=== PATIENT | male | born 1940 | race Caucasian/White ===

== ENCOUNTER → 2016-09-06 | Day surgery (SDC) | payer OTHER ==
[2016-08-31 09:37] VITALS: BMI 24.8
[~2016-09-06] MED LIST: ACETAZOLAMIDE 250 MG TAB PO ONE; BSS 500 ml-Vancomycin 10 mg-Phenylephrine 1 mg Irrigation IR ONE; CHONDROITIN SULFATE 0.5 ML/PFS INTRAOC ONE; DEXAMETHASONE 4 MG/ML VIAL IV PRN; DIAZEPAM 5 MG TAB PO PRN; FENTANYL 100 MCG/2 ML VIAL IV PRN; FENTANYL 100 MCG/2 ML VIAL ONE; HYDROCODONE 5 MG/ACETAMIN 325 MG TAB PO PRN; Hyaluronate Sodium (Provisc) 5.5 mg/0.55 ml syringe INTRAOC ONE; KETOROLAC TROMETH 30 MG/ML VIAL IV PRN; LABETALOL 20 MG/4 ML SYRINGE IV PRN; LR 1,000 ML IV ONE; LR 1,000 ML IV SCH; MIDAZOLAM 2 MG/2 ML VIAL ONE; NS 1,000 ML IV SCH; NS 250 ML IV SCH; ONDANSETRON HCL 4 MG/2 ML VIAL IV PRN; PHENYLEPHRINE 2.5% OPHTH SOLN 2 ML BOT OP EYE ONE; SCOPOLAMINE TRANSDERMAL PATCH TOP PRN; TETRACAINE 0.5% 2 ML OPHTH SOLN OP EYE ONE; TETRACAINE 0.5% 2 ML OPHTH SOLN OP EYE PRN; TROPICAMIDE 1% OPHTH SOLN 2 ML BOTTLE OP EYE ONE; Vancomycin 10 MG, Phenylephrine 1,000 MCG in Balanced Salt Solution 500 ML IO ONE; hydrALAZINE 20 MG/ML VIAL IV PRN
--- NOTE | 2016-09-06 08:00 | SC.ANESEVA ---
Anesthesia Eval & Plan (PSYCHIATRIC) - Providers Stated Procedure: left eye cataract surgery Surgeon:: Karen Orellana - Medications/Allergies Allergies: Allergies acetaminophen Allergy (Verified 08/31/16 09:38) Nausea only oxycodone Allergy (Verified 04/05/16 13:58) Confusion Current Medication List: Reviewed - Focused Physical Exam NPO since: after Midnight Mallampati: Class II Neck: Full Range of Motion Dental: Normal - no significant findings Cardiovascular/Chest: Bradycardia Respiratory: Lungs clear Any problems with anesthesia, including nausea and vomiting?: No Any relatives with a history of Malignant Hyperthermia?: No Prone to Motion Sickness: No Other: Diagnoses COMBINED FORMS OF AGE-RELATED CATARACT, LEFT EYE (09/06/16) Problem List Problem Status Onset Acute sinusitis Acute CVA (cerebral vascular accident) Acute Sinusitis Acute CAD (coronary artery disease) Chronic COPD (chronic obstructive pulmonary disease) Chronic Gait instability Chronic Hyperlipidemia Chronic Hypertension Chronic Allergies Allergy/AdvReac Type Severity Reaction Status Date / Time acetaminophen Allergy Nausea only Verified 08/31/16 09:38 oxycodone Allergy Confusion Verified 04/05/16 13:58 Home Medications Medication Instructions Recorded Last Taken Type Metoprolol Tartrate [Lopressor] 12.5 mg PO BID 06/27/12 04/07/16 08:00 History Aspirin [Aspirin EC] 81 mg PO HS 11/19/14 04/06/16 08:00 History Tramadol HCl [Ultram] 50 mg PO Q4-6H PRN 11/19/14 11/17/14 History Clopidogrel Bisulfate [Plavix] 75 mg PO DAILY #30 tablet 05/01/15 04/01/16 Rx Alendronate Sodium [Fosamax] 70 mg PO QMONTH 04/05/16 04/06/16 12:00 History Atorvastatin Calcium 20 mg PO HS 04/05/16 04/06/16 20:00 History Budesonide/Formoterol Fumarate 2 puff INH BID 04/05/16 04/07/16 08:00 History [Symbicort 160-4.5 Mcg Inhaler] Calcium 1,000 mg PO BID 04/05/16 04/06/16 15:00 History Cyanocobalamin (Vitamin B-12) 1,000 mcg SL DAILY 04/05/16 04/06/16 15:00 History [Vitamin B-12 (cyanocobalamin)] Donepezil HCl [Aricept] 5 mg PO HS 04/05/16 04/06/16 20:00 History Ferrous Sulfate [Iron] 325 mg PO DAILY 04/05/16 04/06/16 15:00 History Guaifenesin-Dextromethorphan 1 each PO DAILY 04/05/16 04/06/16 20:00 History [Mucinex Dm] Loratadine [Claritin] 10 mg PO DAILY 04/05/16 04/07/16 08:00 History Mometasone/Formoterol [Dulera 100 13 gm IH BID 04/05/16 04/07/16 08:00 History Mcg/5 Mcg Inhaler] Pantoprazole Sodium [Protonix] 40 mg PO DAILY 04/05/16 04/07/16 08:00 History Amoxicillin/Clavulanate Potas. 1 tab PO BID 04/07/16 Unknown History [Augmentin] Meperidine HCl [Demerol] 1 tab PO Q8H PRN 04/07/16 Unknown History Height and Weight Patient's height 5 ft 8 in Patient's weight 74.09 kg Weight (Calculated Kilograms) 74.090 BMI 24.8 - Anesthetic Plan Anesthesia Type: MAC ASA Class: 3 - Focused Review of Systems Cardiac History: Yes: Hx Hypertension, Hx Heart Attack (2001), Hx Cardiac Catheterization (2001), Hx Coronary Stent (2001), Hx Cardia Arrhythmia ( VENTRICULAR ARRYTHMIA), Hx Cardiac Disorders, Hx Abnormal Cholesterol/ Hyperlipidemia HEENT: Yes: Cataracts, Other HEENT Problems Respiratory: Yes: Hx Chronic Obstructive Pulmonary Disease (COPD) Gastrointestinal: Yes: Hx Gastroesophageal Reflux Disease, Hx Gastrointestinal Disorders, Hx Diverticulitis, Hx Colonoscopy (POLYPECTOMY 2011) Genitourinary: Neurological/Musculoskeletal: Yes: HX Cerebrovascular Accident ( 04/2015 RIGHT SIDED WEAKNESS), Hx Transient Ischemic Attacks (TIA), Hx Dementia (TAKING ARICEPT), Hx Syncope, Hx Back Pain, Hx Neurological Disorders Blood/Autoimmune: No: Hx Blood Transfusions, Hx Anemia, Hx AIDS, Hx Hepatitis (type) Smoking Status: Former smoker Past Social History: Denies: Substance Use Disorder Surgical History: Yes: Ablation (2007), Back (06/04/2014 LUMBAR FUSION, 2013 LUMBAR DISCECTOMY), Hip (RT HIP ORIF 2007), Other (ROTATOR CUFF, ablation, R hip arthroplasty,) Other Surgical History: SALIVARY DUCT STONE REMOVED S/P CARDIAC ABLATION
--- NOTE | 2016-09-06 08:48 | HIMOPRPT ---
DATE OF PROCEDURE: 09/06/16 PREOPERATIVE DIAGNOSIS: Cataract Left eye. POSTOPERATIVE DIAGNOSIS: Cataract Left eye. PROCEDURE: Cataract extraction by phacoemulsification of the Left eye SURGEON: Karen Orellana MD. ANESTHESIA: IV Sedation/Topical. COMPLICATIONS: None. PRE-OPERATIVE EVALUATION: The patient has been examined and deemed medically stable for cataract extraction with no apparent need for inpatient observation; outpatient setting is appropriate. Patient appears to be oriented to time, place and person. PROCEDURE IN DETAIL: The correct eye confirmed by patient, doctor, staff and paperwork. The operative eye was then marked by the doctor in the preoperative area. Eye drops were instilled into the operative eye to dilate the pupil. The patient was transported to the operating room and was placed in the supine position. A time out was performed before the beginning of the procedure. The operative eye was prepped and draped in the usual sterile fashion for ophthalmic surgery, taking care to isolate the lashes from the surgical field. Topical anesthetic drops were instilled into the operative eye. A lid speculum was placed. Betadine 5% was instilled in the operative eye for antiseptic. Microscope was brought into place for use throughout the case. The eye was inspected. A paracentesis incision was created with a side port knife. The temporal limbal corneal incision was performed with a lana blade. Viscoelastic was injected into the anterior chamber. Capsule forceps were used to create a capsulorhexis. Hydrodissection was performed with BSS. The nucleus was removed by phacoemulsification. Phaco time is noted below. The remaining cortical material was removed by I&A. The capsular bag was noted to be intact and distended with viscoelastic. The Intraocular lens was placed into the intact bag and centered without difficulty. The remaining viscoelastic was removed by I&A. Betadine 5% drops were placed to inspect wound and for antisepsis. Inspection revealed watertight wounds. The lid speculum was removed. Postoperative medications were instilled into the eye and a shield secured over the operative eye. IOL Type [id number] IOL Power 20.5 CDE 8.22 Discharge Summary: There were no complications and the patient was taken to the postoperative area in good condition. Postoperative instructions and outpatient follow up time were given.
[2016-09-06 08:50] VITALS: TEMP 97.3
[2016-09-06 08:51] VITALS: BP 126/77; PULSE 55
--- NOTE | 2016-09-06 10:59 | SC.ANESPOS ---
Post-Anesthesia Note LOC: Fully Awake Post-Anesthesia Assessment: Awake, Returned to Baseline, Hemodynamically Stable , Pain Control Adequate Phase I & II Recovery Complete: Yes Apparent Anesthesia Complication: No : N - Vital Signs Blood Pressure: 126/77 Pulse: 55 Resp Rate: 18 O2 Sat: 98 Temp: 97.3 F
== END ==
LOC: CPSC 06:54
PROVIDERS: ATTEND Ophthalmology
PROC: 08RK3JZ Replacement of Left Lens with Synthetic Substitute, Percutaneous Approach (ICD-10-PCS; principal; 2016-09-06 09:15)
DX: H25.812 Combined forms of age-related cataract, left eye (principal); I10 Essential (primary) hypertension; I25.10 Atherosclerotic heart disease of native coronary artery without angina pectoris; I25.2 Old myocardial infarction; E78.5 Hyperlipidemia, unspecified; J44.9 Chronic obstructive pulmonary disease, unspecified; F03.90 Unspecified dementia, unspecified severity, without behavioral disturbance, psychotic disturbance, mood disturbance, and anxiety; K21.9 Gastro-esophageal reflux disease without esophagitis; I69.951 Hemiplegia and hemiparesis following unspecified cerebrovascular disease affecting right dominant side; F32.9 Major depressive disorder, single episode, unspecified; M81.0 Age-related osteoporosis without current pathological fracture; Z79.899 Other long term (current) drug therapy; Z95.5 Presence of coronary angioplasty implant and graft; Z87.891 Personal history of nicotine dependence
CPT/HCPCS: 66984; A9270; J2250; J3010; V2632; J3490